=== PATIENT | female | born 1980 | race Caucasian/White ===

== ENCOUNTER 2016-11-13 16:39 | Emergency (ER) | payer OTHER ==
[2016-11-13 16:59] VITALS: BP 116/61
--- NOTE | 2016-11-13 18:52 | UC ---
Head Injury HPI - HPI Summary HPI Summary: Patient presents to the clinic s/p traumatic injury to her head, a tile fell on her head last night, she was holding a tile in place and it slipped and hit her on the right side top of her head. There was no LOC, but today she has had a slight headache, lightheadedness, dizzinessness and mild nausea. She also reports left sided base of neck and shoulder pain with movement. She denies blurred vision, vomiting, or ataxia. - History Of Current Complaint Chief Complaint: UCHeadInjury Stated Complaint: HEAD INJURY Time Seen by Provider: 11/13/16 17:41 Hx Obtained From: Patient Hx Last Menstrual Period: 11/01/16 Onset/Duration: Sudden Onset Severity Currently: Mild Severity Initially: Mild Character: Dull Aggravating Factor(s): Nothing Alleviating Factor(s): Nothing Associated Signs And Symptoms: Positive: Neck Pain - left side lateral side, and anterior shoulder, Nausea - Risk Factors SDH Risk Factor: Negative - Allergies/Home Medications Allergies/Adverse Reactions: Allergies Allergy/AdvReac Type Severity Reaction Status Date / Time No Known Allergies Allergy Verified 11/13/16 16:59 PMH/Surg Hx/FS Hx/Imm Hx Previously Healthy: Yes - Surgical History Surgical History: Yes Surgery Procedure, Year, and Place: 2 knee surgeries - Family History Known Family History: Positive: None - Social History Occupation: Employed Full-time Lives: With Family Alcohol Use: None Substance Use Type: None Smoking Status (MU): Former Smoker Household Exposure Type: Cigarettes Review of Systems Gastrointestinal: Nausea Neurological: Headache All Other Systems Reviewed And Are Negative: Yes Physical Exam Triage Information Reviewed: Yes Appearance: Well-Appearing Vital Signs: Initial Vital Signs Temp 97.3 F 11/13/16 16:54 Pulse 73 11/13/16 16:54 Resp 18 11/13/16 16:54 BP 116/61 11/13/16 16:54 Pulse Ox 100 11/13/16 16:54 Vital Signs Reviewed: Yes Eye Exam: Normal ENT Exam: Normal Neck exam: Normal Respiratory Exam: Normal Cardiovascular Exam: Normal Abdominal Exam: Normal Musculoskeletal: Positive: Other: - neck, lateral base slight tenderness on palpation, vertebra nontender midline, rom intact in all planes. Neurological Exam: Normal Skin Exam: Normal Head Injury Course/Dx - Course Course Of Treatment: Patient presents 24 hours s/p minor head injury, ct brain negative. Findings consistent with mild concussion. Patient advise no activity that puts her a risk for repeat injury until all symtpoms resolve. She was told to follow up in the ER if any of her symtpoms get worse. - Differential Dx/Diagnosis Differential Diagnosis/HQI/PQRI: Contusion Provider Diagnoses: concussion. minor head injury. headache. lighheaded. nausea Discharge - Discharge Plan Condition: Stable Disposition: HOME Patient Education Materials: Concussion (ED), Head Injury (ED) Referrals: No Primary Care Phys,NOPCP [Primary Care Provider] -
--- NOTE | 2016-11-13 18:56 | RAD ---
INDICATION: Heavy tile versus right side of the head the previous night. Now with local pain and photosensitivity. COMPARISON: CT of the brain dated February 07, 2008 TECHNIQUE: Contiguous axial sections of the brain were obtained from the skull base to the vertex without contrast. FINDINGS: The ventricles, cisterns and sulci are within normal limits. The hernandez-white matter differentiation is adequately maintained and there is no sulcal effacement. No significant focal abnormality or mass effect is present. There is no evidence for intracranial hemorrhage. No significant focal osseous abnormality is present. The visualized portion of the paranasal sinuses and mastoid air cells appear clear. IMPRESSION: Normal CT of the brain.
== END 2016-11-13 18:30 | disposition home or self-care (01) ==
LOC: UCEAST 16:39
DX: S06.0X0A Concussion without loss of consciousness, initial encounter (principal); R51 Headache; R42 Dizziness and giddiness; R11.0 Nausea; Z87.891 Personal history of nicotine dependence; W20.8XXA Other cause of strike by thrown, projected or falling object, initial encounter; Y92.9 Unspecified place or not applicable
CPT/HCPCS: 70450; 99211; G0463

== ENCOUNTER → 2018-09-23 07:05 | Day surgery (SDC) | payer MEDICAID, OTHER ==
--- NOTE | 2018-09-12 15:24 | HP ---
PREOPERATIVE HISTORY AND PHYSICAL: DATE OF SURGERY/ADMISSION: 09/23/18 DATE OF OFFICE VISIT/ENCOUNTER: 09/08/18 ATTENDING SURGEON: Tee Rice MD * (DICTATED BY YANN DAWKINS) PRIMARY CARE PHYSICIAN: Dr. Gabbie De La Cruz. PROCEDURE: Left knee arthroscopy, medial meniscus repair or partial meniscectomy, arthroscopic anterior cruciate ligament reconstruction with bone patellar tendon bone or Achilles allograft. 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 She sustained injury to her left knee on 03/13/18. She was jumping over a couch and landed on her left leg and felt like she hyperextended the knee. She also sustained varus and valgus injuries. After the injury, she developed significant swelling and pain. An MRI subsequently showed a high- grade ACL injury, mild partial tear of the MCL and a peripheral tear at the posterior horn of the medial meniscus. The patient attended physical therapy to help work on reduction of swelling and increase in range of motion. She was anticipating surgical intervention, but had to put it off a bit due to work commitments. She is now scheduled to proceed with surgery with Dr. Rice to address the anterior cruciate ligament tear and the medial meniscus tear. Of note, the patient has had similar surgery on the contralateral right knee in the past. She has been experiencing mild chest pain recently. She has an appointment to see her primary care physician, Dr. De La Cruz, in the next couple of days and we will receive medical clearance from Dr. De La Cruz prior to proceeding with surgery. PAST MEDICAL HISTORY: Unremarkable. PAST SURGICAL HISTORY: 1. Right knee x2 with ACL reconstruction. 2. . CURRENT MEDICATIONS: Naproxen sodium 220 mg 1 tab q.12 hours p.r.n. ALLERGIES: No known drug allergies. FAMILY MEDICAL HISTORY: Diabetes, heart disease, hypertension, stroke, cancer, rheumatoid arthritis. SOCIAL HISTORY: The patient owns and runs a cleaning service. She is a former smoker. She quit about 5 or 6 years ago. Prior to that she smoked a pack per day for 19 years. She denies recreational drug use. She drinks alcohol on rare occasion. REVIEW OF SYSTEMS: Negative for general, cephalic, cardiovascular, respiratory , GI, , other musculoskeletal, integumentary, endocrine, neurologic and hematologic symptoms. Infectious diseases: Negative for MRSA, hepatitis C, HIV. PHYSICAL EXAMINATION GENERAL: Well-developed, well-nourished 37-year-old female in no acute distress. VITAL SIGNS: Height 5 feet 3-3/4 inches, weight 226 pounds. Pulse rate 76, blood pressure 126/74. HEENT: Normocephalic, atraumatic. Pupils are equal, round, and reactive to light and accommodation. Extraocular movements are intact. Throat is clear. NECK: Supple. No palpable lymph nodes. PULMONARY: Lungs are clear to auscultation bilaterally. No wheezes, rales, or rhonchi. CARDIOVASCULAR: Regular rate and rhythm. S1, S2. No murmurs, rubs, or gallops. No edema. ABDOMEN: Positive bowel sounds, soft, and nontender. NEUROLOGIC: Alert and oriented x3. Cranial nerves II through XII are intact. Sensation is intact to light touch. MUSCULOSKELETAL: On current exam of the left knee, there is trace effusion, passive range of motion from 0 to 130 degrees of flexion. No joint line tenderness to palpation. Negative Anuja's test. Trace increased laxity with Jessie's testing, pivot shift causing apprehension. Neurovascular function is intact. IMAGING STUDIES: MRI of the left knee shows an anterior cruciate ligament tear and medial meniscus tear. IMPRESSION: 1. Left knee ACL tear 2. Left knee medial meniscus tear PLAN: The patient is scheduled to undergo a left knee arthroscopy, medial meniscus repair or partial meniscectomy, arthroscopic ACL reconstruction with bone patellar bone or Achilles allograft with Dr. Rice on 09/23/18. She will return to the office 10 to 14 days postop for followup and suture removal. She will be prescribed postoperative pain medications on day of surgery. YANN DAWKINS [id number]/[facility] #: [id number] NIMA
[~2018-09-23 07:05] MED LIST: Acetaminophen IV 1GM/100ML * 1,000 MG/100 ML VIAL IVPB ONE; Acetaminophen IV 1GM/100ML * 100 ML ONE; Buffered Lidocaine 1% SYRIN* 1 ML/SYRINGE INTRADERM ONE; Bupivacaine 0.5% W/EPI SDV* 30 ML VIAL ONE; Dexamethasone IV* 4 MG/ML 1 ML (4 MG) IV SLOW PU ONE; Dexamethasone IV* 4 MG/ML 1 ML (4 MG) ONE; DiMENhydriNATE IV* 50 MG/ML VIAL IV PUSH PRN; EPINEPHRINE 1 MG/ML 1 ML VIAL ONE; Famotidine TAB* 20 MG ONE; Famotidine TAB* 20 MG PO ONE; HYDROmorphone INJ1* 1 MG/ML SYRINGE ONE; Ibuprofen TAB* 600 MG PO PRN; Lactated Ringers 1000 ML Bag* 1,000 ML IV SCH; Lidocaine 2% PF * 5 ML VIAL ONE; Midazolam* 1 MG/ML 5 ML VIAL (5 MG) ONE; Naloxone* 0.4 MG/ML 1 ML VIAL IV PRN; Ondansetron INJ* 2 MG/ML VIAL ONE; Propofol* 10 MG/ML 20 ML BTL ONE; Rocuronium* 10 MG/ML VIAL ONE; ceFAZolin 2 GM in NS PREMIX(*) 2 GM/100 ML BAG IVPB ONE; fentaNYL* 50 MCG/ML 2 ML VIAL (100 MCG VIAL) ONE; fentaNYL* 50 MCG/ML 5 ML VIAL (250 MCG VIAL) ONE; oxyCODONE TAB* 5 MG TAB PO PRN
[2018-09-23] MEDS: fentaNYL* 50 MCG/ML 2 ML VIAL (100 MCG VIAL) IV PRN ×2 (11:34→11:49)
[2018-09-23] MEDS: HYDROmorphone INJ1* 1 MG/ML SYRINGE IV PRN ×2 (12:32→13:44)
[2018-09-23 13:40] VITALS: BP 116/70
--- NOTE | 2018-09-24 23:01 | OP ---
OPERATIVE REPORT: DATE OF OPERATION: 09/23/18 DATE OF : 82 SURGEON: Tee Rice MD FLYING SQUAD WORKER: YANN Jimenez A physician sales service assistant was required for the procedure for assistance with the patient positioning, retraction, instrumentation, and closure. ANESTHESIOLOGIST: Dr. Inocente Black. ANESTHESIA: General anesthesia, local anesthesia with approximately 30 cc of Marcaine 0.5% with epinephrine. PRE-OP DIAGNOSES: 1. Left knee ACL tear. 2. Likely left knee medial meniscus tear. POST-OP DIAGNOSES: 1. Left knee ACL tear. 2. No left knee medial meniscus tear, stable or unstable. OPERATIVE PROCEDURE: 1. Left knee arthroscopic ACL reconstruction with [id number]-cvji allograft. 2. Left knee arthroscopic evaluation of medial meniscus. ANTIBIOTICS: Ancef 2 g IV. IV FLUIDS: 1300 cc crystalloid. TOURNIQUET TIME: 114 minutes of left thigh tourniquet set to 300 mmHg. SKIN TO SKIN TIME: 112 minutes. SPECIMEN: None. IMPLANTS: Mitek Kamari and Kamari Casi biocomposite screws, 2 of them, each 10 mm x23 mm. ACL allograft, [id number], precontoured. COMPLICATIONS: None. ESTIMATED BLOOD LOSS: Minimal. INDICATIONS FOR SURGERY: The patient is a 37-year-old woman who injured her left knee on 03/13/18. By MRI, I diagnosed the patient with left knee ACL tear , high- grade partial thickness or full thickness, MCL low-grade sprain, and likely medial meniscus tear. I spoke with the patient about operative versus nonoperative treatment, injuries , both ACL and medial meniscus. The patient was interested in surgery, but delayed it until the timing was best with her work schedule. The patient despite physical therapy and strengthening would have instability episodes of the knee and continued to be interested in ACL reconstruction surgery. We spoke about grafts and decided on allograft. We spoke about meniscus repair versus partial meniscectomy. The patient had some signal change about the periphery of the medial meniscus posterior horn. Read by radiologist as complex mini multiple directions, but not entirely clear to me whether it represented one clear tear or just signal change. Discussed risks and potential complications of surgery as well as recovery timeline postoperatively. DESCRIPTION OF PROCEDURE: In preoperative holding, the patient signed a written consent. Operative extremity was marked in preoperative holding. Prior to the patient being brought into the room, I performed a mini time-out and prepared the allograft. I had a precontoured bone- patella-bone allograft. We contoured additionally the bone blocks, which each measured 26 mm in length. I placed one FiberWire #5 stitch proximally and two distally, placing stitches in the patellar tendon as well as through the bone blocks. I held that allograft under tension on the back table and kept it moist. Bone quality was a little bit lesser than I sometimes see with these allografts. The patient was taken back to the operating room and placed supine on the operating room table. Sedated and intubated. Tourniquet was placed about the left thigh. Lateral post was applied to the OR table. The left lower extremity was prepped and draped. Surgical time-out performed. Esmarch applied and tourniquet elevated to 300 mmHg. After the surgical time-out, formal was performed with the patient in the room, prepped and draped, with the tourniquet elevated, I started the remainder of the case. Anterolateral knee arthroscopy portal established using standard technique. Patellofemoral compartment showed no articular cartilage injury. Significant synovitis noted anteriorly about the knee. I established an anteromedial knee arthroscopy portal to insert an arthroscopic shaver and debride significant synovitic tissue about the anterior aspect of the knee and allow improved visualization. I looked into the intercondylar notch and saw immediately a severely deficient ACL. At that point, it looked like it was 100% torn proximally. I moved to the medial compartment. I established a new anteromedial knee arthroscopy portal to evaluate the medial compartment width. No articular cartilage injury. No clear medial meniscus tear. I used an arthroscopic probe to probe the medial meniscus along its length from posterior to anterior. No tear visualized or palpated. No instability. No abnormal movement of that meniscus. This was a nice surprise, no medial meniscus to remove or repair. I moved to the lateral compartment. No articular cartilage or meniscus injury. We next assembled the knee positioner, [facility] system. I flexed the knee to 90 degrees and evaluated more thoroughly the intercondylar notch. I evaluated the ACL with an arthroscopic probe. There might have been several fibers still intact, perhaps 2% of the ligament still intact. This was debrided with arthroscopic shaver as was much of the body of the stump. The patient's notch was noted to be very narrow. I performed a notchplasty with arthroscopic tad. I then hyperflexed the knee after marking the 1:30 o'clock position with a Abel awl with the knee in 90 degrees of flexion. I also noted the proximal aspect of the posterior articular cartilage. I used these landmarks to help locate the appropriate position for femoral tunnel. I placed Beath pin and drilled a 10 mm wide femoral tunnel. I flexed the knee to 90 degrees. Identified appropriate landmarks. I left some of the ACL stump distally still intact. I made an incision over the anteromedial proximal lower leg. Dissected down to bone. I introduced my tibial ACL drill guide, set to 55 degrees. I placed pin and then drilled my 10 mm tunnel. I placed passing suture through the tunnels. I passed my graft. While passing my graft the first time, one of my sutures pulled through the bone block, proximal, prior to that getting into the femoral tunnel. I, therefore removed the graft. I placed several cerclage stitches with Vicryl 2- 0 suture and then I weaved the #5 FiberWire between the 2 holes in the proximal bone block. This reestablished the proximal bone block and I was comfortable with reusing it. I passed the graft into place. Tapped and then placed a 10 x 23 mm biocomposite screw into the femoral tunnel. Then with the knee fully extended and a posterior drawer maneuver being applied, tapped and then placed a 10 x 23 mm screw in the tibial tunnel. The knee was stable to Jessie and anterior drawer stress testing. I placed my arthroscope in the knee and evaluated the ACL through a large range of motion. Graft looked well placed with excellent tension. Irrigation. Several vxrilc-te-cefed stitches with Vicryl 0 suture placed in some deep fascia over the proximal lower leg incision. Then in this longitudinal incision, I closed the subcutaneous tissue with buried simple stitches using Vicryl 2-0 suture. Closed all the skin incisions using nylon 3- 0 suture. I placed a running stitch in the long lower leg incision, but the remainder of the smaller poke hole incisions received [id number] or 12 stitches using a nylon 3-0 suture. I applied local anesthesia 30 cc Marcaine 0.5% with epinephrine to the subcutaneous tissue about all skin incisions. Xeroform, 4x4's, ABD's, Herbert bandage from foot to proximal thigh. Knee cooling unit applied. Knee brace applied and locked in extension. The patient awakened, extubated and taken to the PACU. DISPOSITION: The patient will be weightbearing as tolerated. She will start the knee brace locked in extension with crutches and will wean off of those under the guidance or supervision of physical therapy, which she will start immediately postoperatively. The patient was given Percocet as needed for pain control, aspirin x2 weeks for DVT prophylaxis and a short course of Keflex for infection prophylaxis. Wound care instructions provided. The patient will follow up 10 to 14 days postoperatively in clinic with . [id number]/[facility] #: [id number] NIMA
== END | disposition home or self-care (01) ==
LOC: OR 07:05
PROVIDERS: ATTEND Orthopaedic Surgery
DX: S83.512A Sprain of anterior cruciate ligament of left knee, initial encounter (principal); X50.0XXA Overexertion from strenuous movement or load, initial encounter; Y92.9 Unspecified place or not applicable; F41.8 Other specified anxiety disorders; R07.9 Chest pain, unspecified; Z87.891 Personal history of nicotine dependence
CPT/HCPCS: 81025; A9270-GY; C1713; C1776; J0690; J1100; J1170; J2250; J2405; J2704; J3010